=== PATIENT | male | born 1995 | race Caucasian/White ===

== ENCOUNTER 2023-08-29 20:58 | Emergency (ER) | payer OTHER, SELFPAY ==
[2023-08-29] VITALS (12 sets, daily range): BP systolic 86–122; BP diastolic 54–91; PULSE 108–138; RESP 10–24; TEMP 36.4; O2SAT 94–100; BMI 27.3
--- NOTE | 2023-08-29 21:16 | XRR_ITS ---
PROCEDURE INFORMATION: Exam: XR Abdomen Exam date and time: 08/29/2023 9:26 PM Age: 27 years old Clinical indication: Abdominal pain; Prior surgery; Surgery date: <1 month; Surgery type: Heart valve 3 weeks ago TECHNIQUE: Imaging protocol: Radiologic exam of the abdomen. Views: 2 Views. Upright and supine views. COMPARISON: CR XR chest 1V [id number] 09/20/2016 7:23 PM FINDINGS: Lungs: Bibasilar right greater than left atelectasis versus infiltrate. Pleural spaces: Small right pleural effusion. Gastrointestinal tract: Normal. No bowel dilation. Intraperitoneal space: Normal. No free air. Bones/joints: Sternotomy wires. XR/XR acute abdomen series [id number] IMPRESSION: 1. Small right pleural effusion. 2. Bibasilar right greater than left atelectasis versus infiltrate. 3. Sternotomy wires.
--- NOTE | 2023-08-29 21:16 | CTR_ITS ---
PROCEDURE INFORMATION: Exam: CT Head Without Contrast Exam date and time: 08/29/2023 9:23 PM Age: 27 years old Clinical indication: Injury or trauma; Fall; Blunt trauma (contusions or hematomas); Patient HX: PT started having abd pain after taking miralax today, also started having diarrhea. States the pain has moved up into his chest this evening. Vomiting started in triage. PT had aortic valve replacement 3 weeks at [facility] in [place]. states that after surgery he came out with a bump on his head and some numbness on right side of scalp behind his ear. ; Additional info: Fall, head injury TECHNIQUE: Imaging protocol: Computed tomography of the head without contrast. Radiation optimization: All CT scans at this facility use at least one of these dose optimization techniques: automated exposure control; mA and/or kV adjustment per patient size (includes targeted exams where dose is matched to clinical indication); or iterative reconstruction. COMPARISON: No relevant prior studies available. RADIATION DOSE METRICS: Total DLP (mGy-cm): 1091 FINDINGS: Brain: Normal. No hemorrhage. Unremarkable white matter. No mass effect. Cerebral ventricles: No ventriculomegaly. Paranasal sinuses: Visualized sinuses are unremarkable. No fluid levels. Mastoid air cells: Visualized mastoid air cells are well aerated. Bones: Unremarkable. No acute fracture. Soft tissues: Unremarkable. CT/CT head wo con* [id number] IMPRESSION: No acute intracranial abnormality.
--- NOTE | 2023-08-29 21:17 | ECG_ITS ---
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 Measurements Intervals [place] Rate: 126 P: 52 MN: 123 QRS: 75 QRSD: 98 T: -90 QT: 335 QTc: 486 Interpretive Statements SINUS TACHYCARDIA MODERATE T-WAVE ABNORMALITY, CONSIDER LATERAL ISCHEMIA [-0.1+ mV T-WAVE IN I/aVL/V5/V6] MODERATE T-WAVE ABNORMALITY, CONSIDER INFERIOR ISCHEMIA [-0.1+ mV T-WAVE IN II/aVF] No previous ECG available for comparison Electronically Signed On 08-30-2023 7:25:48 CDT by Matthew Jo M.D. [id number] f
--- NOTE | 2023-08-29 21:17 | ECG_ITS ---
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 Measurements Intervals [place] Rate: 126 P: 52 DE: 123 QRS: 75 QRSD: 98 T: -90 QT: 335 QTc: 486 Interpretive Statements SINUS TACHYCARDIA MODERATE T-WAVE ABNORMALITY, CONSIDER LATERAL ISCHEMIA [-0.1+ mV T-WAVE IN I/aVL/V5/V6] MODERATE T-WAVE ABNORMALITY, CONSIDER INFERIOR ISCHEMIA [-0.1+ mV T-WAVE IN II/aVF] No previous ECG available for comparison Electronically Signed On 08-30-2023 7:25:41 CDT by Matthew Jo M.D. [id number] f
--- NOTE | 2023-08-29 21:21 | ED_ITS ---
HPI - Abdominal Pain 2 General: Chief Complaint: Abdominal Pain Stated Complaint: Heart Surgury\Pain Time Seen by Provider: 08/29/23 21:12 History of Present Illness: 27-year-old man who presents the emergen cy room with multiple complaints. The primary issue was abdominal pain. But also is having some confusion/memory loss. He had a fairly complicated surgery about 3 weeks ago at [facility] in [place]. He was having a aortic valve repair for congenital disorder. Apparently when a central line was being put in an artery was nicked and he bled out and ended up having CPR for 15 minutes until the surgeon can open his chest and repair the damaged artery. He then had the valve replaced. notes that he had had a lump on the back of his head that was unexplained. She is afraid he had hit his head. He had not really had any memory issues until today. He also has had diarrhea and some nausea and appears somewhat confused on presentation to the emergency room. He was having some epigastric and mid abdominal pain. He is tachycardic and slightly hypotensive on presentation. Review of Systems 2 Narrative: Constitutional symptoms: Negative except as documented in HPI. Skin symptoms: Negative except as documented in HPI. Eye symptoms: Negative except as documented in HPI. ENMT symptoms: Negative except as documented in HPI. Respiratory symptoms: Negative except as documented in HPI. Cardiovascular symptoms: Negative except as documented in HPI. Gastrointestinal symptoms: Negative except as documented in HPI. Genitourinary symptoms: Negative except as documented in HPI. Musculoskeletal symptoms: Negative except as documented in HPI. Neurologic symptoms: Negative except as documented in HPI. Psychiatric symptoms: Negative except as documented in HPI. Endocrine symptoms: Negative except as documented in HPI. Physical Exam 2 Narrative: EXAM NARRATIVE: General: Somnolent but arousable, patient appears slightly diaphoretic. Ill- appearing Skin: Warm, dry. Head: Normocephalic, atraumatic. Neck: Supple, trachea midline. Eye: Extraocular movements are intact. Ears, nose, mouth and throat: mucosa moist. Cardiovascular: Regular, tachycardic Respiratory: Lungs are clear to auscultation, respirations are non-labored, breath sounds are equal, Symmetrical chest wall expansion. Gastrointestinal: Soft, Nontender, Non distended, Normal bowel sounds. Musculoskeletal: Normal ROM, no deformity. Neurological: Alert and oriented, No focal neurological deficit observed. Patient does seem slightly confused. Psychiatric: Cooperative Course 2 Vital Signs: Vital signs: Vital Signs Temperature 97.6 F 08/29/23 21:05 Pulse Rate 114 H 08/30/23 00:15 Respiratory Rate 18 08/30/23 00:15 Blood Pressure 101/64 08/30/23 00:15 Pulse Oximetry 96 08/30/23 00:15 Oxygen Delivery Me thod Room Air 08/30/23 00:15 MDM - Abdominal Pain Medical Decision Making Medical decision making: Differential diagnosis including but not limited to and based on the above HPI, review of systems and physical exam: I have immediate concern for sepsis. Difficult to identify source. UA was ordered. Lactate. Blood cultures. Basic lab work. Chest x-ray. Concern for pneumonia. Urinary tract infection. Bacteremia. Also would have concern for renal failure. Cardiogenic shock would also be in my differential Orders placed to evaluate differential diagnosis based on the above differential, HPI and physical exam Acute abdominal series: Chest x-ray: New sternotomy wires. New right-sided effusion. No obvious focal infiltrates. No cardiomegaly. No pneumothorax. This was reviewed and interpreted by myself the ER physician. Abdomen x-ray: Nonspecific bowel gas pattern. No evidence of free air or obstruction. This was reviewed and interpreted by myself the emergency room physician. EKG: Time 2116 rate 126. Sinus tachycardia, nonspecific ST wave abnormalities, no ectopy, normal NV & QRS intervals, This was reviewed and interpreted by myself the ER physician at 2119 Sepsis decision making: -IV fluids, 2 L were ordered basically on presentation whenever vitals were presented to me is hypotensive and tachycardic. And after my physical exam. -10:15 PM: Broad-spectrum antibiotics, linezolid and meropenem were ordered when white count came back as 21.15. Repeat EKG: Time 2249 rate 109. Sinus tachycardia, no ectopy, normal NV & QRS intervals, This was reviewed and interpreted by myself the ER physician at 2252. Rate has decreased by 20 bpm. Still with some diffuse ST changes that are fairly nonspecific. Lab Review: Laboratory results were reviewed and interpreted by myself the emergency room physician. Patient has significant leukocytosis with a white count of 21,000 and a left shift at 92%. Hemoglobin is 15. BUN and creatinine are 18 and 1.1 which seems elevated for patient of this age so likely has some hypovolemia. Urinalysis does show some white cells and 2+ bacteria. Lactic acid was 2.7 initially and is increased to 3.2 despite fluids and improvement in his vitals. I reviewed the patient's medical record. CTA of the chest abdomen pelvis: Chest shows small apical right pneumothorax. Right-sided pneumonia with a pleural effusion which could possibly be an empyema. Abdomen shows some changes of the kidneys that might indicate pyelonephritis but no other acute changes. This was reviewed and interpreted by myself the emergency room physician. I also reviewed the radiology reports. Reexamination: Patient remains slightly confused but answers questions appropriately. A little somnolent at times and little bit forgetful. No focal motor deficits. No increased work of breathing and has had no oxygen requirements. He remains slightly tachycardic. Still appears somewhat ill. Assessment and plan: Sepsis Pneumonia Tachycardia Hypotension Urinary tract infection Pneumothorax ?Patient received early broad-spectrum IV antibiotics and 2 L initially and then 1/3 L at around 2 hours. ? Vital signs are improving slightly with heart rate down into the 100s. Blood pressures between 99-110 systolic. Which is improved. However it is worrisome that his lactate has gone up slightly from 2.7-3.2. ? I spoke with the hospitalist here and I am in agreements that he has a possible empyema and with his postsurgical issues I think he needs to go back to [facility]. ? I spoke with Dr. Saab who is excepting the patient to the emergency room. Hospitalist did request that he go to the ER. -3 L normal saline bolus. Fluid volumes based on ideal body weight. -Broad-spectrum antibiotics were administered. -Sepsis quality measures. -Lactic acid with a reflex was ordered. -Blood cultures were ordered. - Discussed findings and plan with patient and family. Answered any questions. - All laboratory values were reviewed and interpreted personally by myself, the ER physician - All imaging was reviewed and interpreted personally by myself, the ER physician. - Evaluation and treatment of this problem were appropriate in the emergency setting -I spent a total of >35 minutes of critical care time managing the patient, independent of any other practitioner. -The time involved in the performance of separately reportable procedures was not counted towards critical care time. Lab Data 08/29/23 21:44 08/29/23 21:44 Labs/Radiology: Radiology Impressions Chest/Abdomen X-ray 08/29/23 21:16 IMPRESSION: 1. Small right pleural effusion. 2. Bibasilar right greater than left atelectasis versus infiltrate. 3. Sternotomy wires. Head CT 08/29/23 21:16 IMPRESSION: No acute intracranial abnormality. Chest/Abdomen/Pelvis CT 08/29/23 23:15 IMPRESSION: 1. Small right apical pneumothorax with 14 mm separation between the lung and pleura. 2. Right lower lobe pneumonia. 3. Moderate to large right pleural effusion. 4. CABG changes. IMPRESSION: 1. Mildly prominent fluid in the small bowel without dilation may reflect an enteritis. 2. Right kidney upper pole focal area of heterogeneity along with left kidney interpolar region small focal area of heterogeneity, please correlate for possible pyelonephritis. ADDENDUM: 08/30/23 0031 THIS REPORT CONTAINS FINDINGS THAT MAY BE CRITICAL TO PATIENT CARE. The findings were verbally communicated via telephone conference with JERMAIN OWENS at 12:28 AM CDT on 08/30/2023. The findings were acknowledged and understood. Patient also has a prosthetic aortic valve. Sternotomy hardware may be related to the aortic valve replacement rather than a CABG, please correlate clinically. Laboratory Results WBC 21.15 10^3/uL (3.29-11.43) H 08/29/23 21:44 RBC 5.32 10^6/uL (3.85-5.65) 08/29/23 21:44 Hgb 15.20 g/dL (11.27-16.99) 08/29/23 21:44 Hct 44.8 % (37-53) 08/29/23 21:44 MCV 84.2 fl (82-101) 08/29/23 21:44 MCH 28.6 pg (27-33) 08/29/23 21:44 MCHC 33.9 g/dL (30-55) 08/29/23 21:44 RDW 14.1 % (12.1-15.1) 08/29/23 21:44 Plt Count 470 10^3/cmm (157-399) H 08/29/23 21:44 MPV 8.5 fL (7.4-10.4) 08/29/23 21:44 Neut % (Auto) 91.1 % 08/29/23 21:44 Lymph % (Auto) 4.0 % 08/29/23 21:44 [place] % (Auto) 2.3 % 08/29/23 21:44 Eos % (Auto) 0.3 % 08/29/23 21:44 Baso % (Auto) 0.6 % 08/29/23 21:44 Neut # (Auto) 19.26 10^3/uL (1.8-7.7) H 08/29/23 21:44 Lymph # (Auto) 0.9 10^3/uL (0.8-4.8) 08/29/23 21:44 [place] # (Auto) 0.5 10^3/uL (0.2-0.9) 08/29/23 21:44 Eos # (Auto) 0.1 10^3/uL (0.0-0.8) 08/29/23 21:44 Baso # (Auto) 0.1 10^3/uL (0.0-0.1) 08/29/23 21:44 Nucleated RBC % (auto) 0 % 08/29/23 21:44 Nucleated RBCs # 0.0 /100WBC 08/29/23 21:44 Specimen Type Arterial 08/29/23 23:05 Sample Site Radial, left 08/29/23 23:05 ABG pH 7.41 (7.35-7.45) 08/29/23 23:05 ABG pCO2 33.3 mmHg (35-45) L 08/29/23 23:05 ABG pO2 76.2 mmHg (80.0-100.0) L 08/29/23 23:05 ABG HCO3 21.3 mmol/L (22-26) L 08/29/23 23:05 ABG O2 Saturation 96.4 08/29/23 23:05 ABG Base Excess -2.6 mmol/L (-2.0-2.0) L 08/29/23 23:05 Paco Test Pos 08/29/23 23:05 A-a O2 Gradient 3.9 mmHg (5-10) L 08/29/23 23:05 Hematocrit 37.9 % (42-52) L 08/29/23 23:05 Hgb O2 Saturation 94.3 % (95-100) L 08/29/23 23:05 Carboxyhemoglobin 1.5 %THgb (0.4-20.1) 08/29/23 23:05 Methemoglobin 0.7 % (0.4-1.5) 08/29/23 23:05 Total Hemoglobin 12.4 g/dL (14-18) L 08/29/23 23:05 Sodium 141.0 mmol/L (131-143) 08/29/23 23:05 Potassium 3.6 mmol/L (3.5-5.0) 08/29/23 23:05 Glucose 146.0 mg/dL (70-115) H 08/29/23 23:05 Ionized Calcium 1.0 mmol/L (1.1-1.4) L 08/29/23 23:05 O2 Delivery Device Room air 08/29/23 23:05 Chili Maker ID [email or web address] 08/29/23 23:05 Sodium 138 mmol/L (136-145) 08/29/23 21:44 Potassium 4.3 mmol/L (3.5-5.1) 08/29/23 21:44 Chloride 101 mmol/L (98-107) 08/29/23 21:44 Carbon Dioxide 21 mmol/L (22-29) L 08/29/23 21:44 Anion Gap 20.3 (5-19) H 08/29/23 21:44 BUN 18 mg/dL (6-20) 08/29/23 21:44 Creatinine 1.1 mg/dL (0.7-1.2) 08/29/23 21:44 GFR Calculation 79.1 mL/min (90-130) L 08/29/23 21:44 Glucose 107 mg/dL (65-115) 08/29/23 21:44 Calculated Osmolality 288 mOsm/kg (285-295) 08/29/23 21:44 Lactic Acid 2.7 mmol/L (0.5-2.2) H 08/29/23 21:44 Lactic Acid (Sepsis) 3.2 mmol/L (0.5-2.2) H 08/29/23 23:45 Calcium 9.3 mg/dL (8.5-10.5) 08/29/23 21:44 Total Bilirubin 0.2 mg/dL (0.15-1.2) 08/29/23 21:44 AST 36 U/L (0-40) 08/29/23 21:44 ALT 45 U/L (0-41) H 08/29/23 21:44 Alkaline Phosphatase 47 U/L (40-130) 08/29/23 21:44 Troponin T Baseline 44 ng/L (0-15) H 08/29/23 21:44 Troponin T 120 Minute 71.00 ng/L (0-15) H 08/29/23 23:45 Delta Troponin T 27.00 ABS# (0-10) H* 08/29/23 23:45 C-Reactive Protein 4.9 mg/L (0.0-4.9) 08/29/23 21:44 Total Protein 7.7 g/dL (6.6-8.7) 08/29/23 21:44 Albumin 4.3 g/dL (3.5-5.2) 08/29/23 21:44 Globulin 3.4 g/dL (1.3-4.6) 08/29/23 21:44 Lipase 64 U/L (13-60) H 08/29/23 21:44 Urine Color Yellow (Yellow) 08/29/23 22:47 Urine Appearance Cloudy (CLEAR) A 08/29/23 22:47 Urine pH 5 (5-7) 08/29/23 22:47 Ur Specific [place] 1.020 (1.005-1.030) 08/29/23 22:47 Urine Protein 2+ (Negative) H 08/29/23 22:47 Urine Glucose (UA) Norm (Normal) 08/29/23 22:47 Urine Ketones Negative (Negative) 08/29/23 22:47 Urine Blood Neg (Negative) 08/29/23 22:47 Urine Nitrate Negative (Negative) 08/29/23 22:47 Urine Bilirubin Neg (Negative) 08/29/23 22:47 Urine Urobilinogen Neg mg/dL (Negative) 08/29/23 22:47 Ur Leukocyte Esterase Trace (Negative) H 08/29/23 22:47 Urine RBC 0-4 /hpf (0-2) H 08/29/23 22:47 Urine WBC 5-10 /hpf (0-5) H 08/29/23 22:47 Ur Squamous Epith Cells None /hpf (0-5) 08/29/23 22:47 Amorphous Sediment 2+ /hpf 08/29/23 22:47 Urine Bacteria 2+ /hpf (NONE) H 08/29/23 22:47 Coarse Granular Casts 0-4 /lpf H 08/29/23 22:47 Urine Mucus 3+ /hpf 08/29/23 22:47 All radiology interpretation(s) finalized by discharge Discharge Plan Discharge Patient Disposition: Xfer Short-Term Hosp Clinical Impression: Healthcare associated bacterial pneumonia, Tachycardia, Acute metabolic encephalopathy Sepsis Qualifiers: Sepsis type: sepsis due to unspecified organism Sepsis acute organ dysfunction status: with acute organ dysfunction Severe sepsis acute organ dysfunction type: encephalopathy Severe sepsis shock status: with septic shock Qualified Code(s): A41.9 - Sepsis, unspecified organism Hypotension Qualifiers: Hypotension type: unspecified hypotension type Qualified Code(s): I95.9 - Hypotension, unspecified Urinary tract infection Qualifiers: Urinary tract infection type: acute cystitis Hematuria presence: without hematuria Qualified Code(s): N30.00 - Acute cystitis without hematuria Pneumothorax Qualifiers: Pneumothorax type: postprocedural Qualified Code(s): J95.811 - Postprocedural pneumothorax Condition: Stable Referrals: Katlin Skelton DO [Primary Care Provider] - Coding Level of Care Code ED Medical Technologist Microbiology for Jose Lugo
[2023-08-29] MEDS: sodium chloride 0.9% 1,000 ML 999 ML IV ×2 (21:48→21:55)
[2023-08-29 22:02] LABS: Basophils # 0.1 10^3/uL (0.0-0.1); Basophils % 0.6 %; Eosinophils # 0.1 10^3/uL (0.0-0.8); Eosinophils % 0.3 %; Hematocrit 44.8 % (37-53); Lymphocytes # 0.9 10^3/uL (0.8-4.8); Mean Corpuscular HGB Conc 33.9 g/dL (30-55); Mean Corpuscular Hemoglobin 28.6 pg (27-33); Mean Corpuscular Volume 84.2 fl (82-101); Mean Platelet Volume 8.5 fL (7.4-10.4); Monocytes # 0.5 10^3/uL (0.2-0.9); Monocytes % 2.3 %; Neutrophils # 19.26 10^3/uL (1.8-7.7); Neutrophils % 91.1 %; Nucleated Red Blood Cells % 0 %; Platelet Count 470 10^3/cmm (157-399); Red Blood Count 5.32 10^6/uL (3.85-5.65); Red Cell Distribution Width 14.1 % (12.1-15.1); White Blood Count 21.15 10^3/uL (3.29-11.43)
[2023-08-29 22:18] LABS: Troponin(5th) Baseline 44 ng/L (0-15)
[2023-08-29 22:21] LABS: Lactic Sepsis W/Reflex 2.7 mmol/L (0.5-2.2)
[2023-08-29 22:24] LABS: Alanine Aminotransferase 45 U/L (0-41); Albumin Level 4.3 g/dL (3.5-5.2); Alkaline Phosphatase 47 U/L (40-130); Anion Gap 20.3 (5-19); Aspartate Amino Transferase 36 U/L (0-40); Blood Urea Nitrogen 18 mg/dL (6-20); C Reactive Protein 4.9 mg/L (0.0-4.9); Calcium 9.3 mg/dL (8.5-10.5); Carbon Dioxide 21 mmol/L (22-29); Chloride 101 mmol/L (98-107); Globulin 3.4 g/dL (1.3-4.6); Glomerular Filtration Rate 79.1 mL/min (90-130); Glucose 107 mg/dL (65-115); Lipase 64 U/L (13-60); Osmolality Calculated 288 mOsm/kg (285-295); Potassium 4.3 mmol/L (3.5-5.1); Sodium 138 mmol/L (136-145); Total Bilirubin 0.2 mg/dL (0.15-1.2); Total Protein 7.7 g/dL (6.6-8.7)
[2023-08-29] MEDS: linezolid premix 600 MG/300 ML PREMIX 300 MG IV (22:38)
[2023-08-29] MEDS: meropenem 500 MG in sodium chloride 0.9% (plus) 50 ML 100 MG IV (22:38)
--- NOTE | 2023-08-29 22:50 | ECG_ITS ---
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 Measurements Intervals [place] Rate: 109 P: 46 ME: 128 QRS: 64 QRSD: 93 T: 58 QT: 333 QTc: 450 Interpretive Statements SINUS TACHYCARDIA POSSIBLE LEFT ATRIAL ENLARGEMENT [-0.1mV P-WAVE IN V1/V2] MODERATE T-WAVE ABNORMALITY, CONSIDER LATERAL ISCHEMIA [-0.1+ mV T-WAVE IN I/aVL/V5/V6] Compared to ECG 08/29/2023 21:17:26 No significant changes Electronically Signed On 08-30-2023 7:29:36 CDT by Matthew Jo M.D. [id number]
[2023-08-29 23:10] LABS: Bilirubin Urine Neg (Negative); Blood Urine Neg (Negative); Glucose Urine UA Norm (Normal); Ketones Urine Negative (Negative); Leukocyte Esterase Urine Trace (Negative); Nitrate Urine Negative (Negative); Protein Urine 2+ (Negative); RBC Urine 0-4 /hpf (0-2); Urine Appearance Cloudy (CLEAR); Urine Color Yellow (Yellow); Urobilinogen Urine Neg (Negative); pH Urine 5 (5-7)
[2023-08-29 23:11] LABS: Amorphous Sediment Urine 2+ /hpf; Bacteria Urine 2+ /hpf; Mucus Urine 3+ /hpf
[2023-08-29 23:12] LABS: Add Urine Culture? No; Coarse Granular Casts Urine 0-4 /lpf
[2023-08-29 23:14] LABS: ABG PCO2 33.3 mmHg (35-45); ABG PH Result 7.41 (7.35-7.45); Alveolar-Arterial Oxygen Gradi 3.9 mmHg (5-10); Arterial Blood Gas Hematocrit 37.9 % (42-52); Base Excess ABG -2.6 mmol/L (-2.0-2.0); Blood Gas Allen Test Pos; Blood Gas Sample Site Radial, left; Blood Gas Sample Type Arterial; Carboxyhemoglobin 1.5 %THgb (0.4-20.1); HCO3 ABG 21.3 mmol/L (22-26); HGB O2 Sat 94.3 % (95-100); Methemoglobin 0.7 % (0.4-1.5); Oxygen Device ROOM AIR; Oxygen Saturation ABG 96.4; PO2 ABG 76.2 mmHg (80.0-100.0); Potassium Level - ABG 3.6 mmol/L (3.5-5.0); Total Hemoglobin 12.4 g/dL (14-18)
--- NOTE | 2023-08-29 23:15 | CTR_ITS ---
PROCEDURE INFORMATION: Exam: CT Chest With Contrast; Diagnostic Exam date and time: 08/29/2023 11:58 PM Age: 27 years old Clinical indication: Nausea and vomiting and other: Sepsis; Prior surgery; Surgery date: <1 month; Surgery type: Heart valve TECHNIQUE: Imaging protocol: Diagnostic computed tomography of the chest with contrast. Radiation optimization: All CT scans at this facility use at least one of these dose optimization techniques: automated exposure control; mA and/or kV adjustment per patient size (includes targeted exams where dose is matched to clinical indication); or iterative reconstruction. Contrast material: OMNI 350; Contrast volume: 100 ml; Contrast route: INTRAVENOUS (IV); COMPARISON: CR XR chest 1V [id number] 09/20/2016 7:23 PM RADIATION DOSE METRICS: Total DLP (mGy-cm): 421 FINDINGS: Lungs: Right lower lobe pneumonia. Pleural spaces: Small right apical pneumothorax with 14 mm separation between the lung and pleura. Moderate to large right pleural effusion. Heart: Unremarkable. No cardiomegaly. No pericardial effusion. Coronary arteries: CABG changes. Lymph nodes: Unremarkable. No enlarged lymph nodes. Vasculature: Unremarkable. No aortic aneurysm. Bones/joints: Unremarkable. No acute fracture. Soft tissues: Unremarkable. PROCEDURE INFORMATION: Exam: CT Abdomen And Pelvis With Contrast Exam date and time: 08/29/2023 11:58 PM Age: 27 years old Clinical indication: Nausea and vomiting and other: Sepsis; Prior surgery; Surgery date: <1 month; Surgery type: Heart valve TECHNIQUE: Imaging protocol: Computed tomography of the abdomen and pelvis with contrast. Radiation optimization: All CT scans at this facility use at least one of these dose optimization techniques: automated exposure control; mA and/or kV adjustment per patient size (includes targeted exams where dose is matched to clinical indication); or iterative reconstruction. Contrast material: OMNI 350; Contrast volume: 100 ml; Contrast route: INTRAVENOUS (IV); COMPARISON: CR (ABDOMEN, ) 08/29/2023 9:26 PM RADIATION DOSE METRICS: Total DLP (mGy-cm): 670 FINDINGS: Liver: Normal. No mass. Gallbladder and bile ducts: Normal. No calcified stones. No ductal dilation. Pancreas: Normal. No ductal dilation. Spleen: Normal. No splenomegaly. Adrenal glands: Normal. No mass. Kidneys and ureters: Right kidney upper pole focal area of heterogeneity along with left kidney interpolar region small focal area of heterogeneity, please correlate for possible pyelonephritis. Stomach and bowel: Mildly prominent fluid in the small bowel without dilation may reflect an enteritis. Appendix: No evidence of appendicitis. Intraperitoneal space: Unremarkable. No free air. No significant fluid collection. Vasculature: Unremarkable. No abdominal aortic aneurysm. Lymph nodes: Unremarkable. No enlarged lymph nodes. Urinary bladder: Unremarkable as visualized. Reproductive: Unremarkable as visualized. Bones/joints: Unremarkable. No acute fracture. Soft tissues: Unremarkable. CT/CT chest abdpel w/*[id number] IMPRESSION: 1. Small right apical pneumothorax with 14 mm separation between the lung and pleura. 2. Right lower lobe pneumonia. 3. Moderate to large right pleural effusion. 4. CABG changes. IMPRESSION: 1. Mildly prominent fluid in the small bowel without dilation may reflect an enteritis. 2. Right kidney upper pole focal area of heterogeneity along with left kidney interpolar region small focal area of heterogeneity, please correlate for possible pyelonephritis.
[2023-08-29 23:47] LABS: Reflex Lactate Order REFLEX LACTIC ORDERD
--- NOTE | 2023-08-29 23:50 | PC.RESP ---
RT phone did not receive notification of ABG when ordered. Physician notified of this.
[2023-08-30] VITALS (11 sets, daily range): BP systolic 92–108; BP diastolic 61–76; PULSE 99–115; RESP 6–25; O2SAT 95–97
[2023-08-30] MEDS: iohexol 350 mg/mL 500 mL Btl (per mL) IV (00:02)
[2023-08-30 00:10] LABS: Lactic Acid level (Lactate) 3.2 mmol/L (0.5-2.2)
[2023-08-30] MEDS: sodium chloride 0.9% 1,000 ML 999 ML IV (01:17)
[2023-08-30 01:43] LABS: Adenovirus Not Detected (NOT DETECT); Chlamydia Pneumoniae Not Detected (NOT DETECT); Coronavirus 229E,HKU1,NL63,OC4 Not Detected (NOT DETECT); Human Metapneumovirus Not Detected (NOT DETECT); Human Rhinovirus/Enterovirus Detected (NOT DETECT); Influenza A Not Detected (NOT DETECT); Influenza A H1 Not Detected (NOT DETECT); Influenza A H1-2009 Not Detected (NOT DETECT); Influenza A H3 Not Detected (NOT DETECT); Influenza B Not Detected (NOT DETECT); Mycoplasma Pneumoniae Not Detected (NOT DETECT); Parainfluenza Virus Type 1 Not Detected (NOT DETECT); Parainfluenza Virus Type 2 Not Detected (NOT DETECT); Parainfluenza Virus Type 3 Not Detected (NOT DETECT); Parainfluenza Virus Type 4 Not Detected (NOT DETECT); Respiratory Syncytial Virus A Not Detected (NOT DETECT); Respiratory Syncytial Virus B Not Detected (NOT DETECT); SARS-COV-2 Not Detected (NOT DETECT)
== END 2023-08-30 02:53 | disposition short-term general hospital (02) ==
PROVIDERS: Emergency Provider Emergency Medicine; PCP Family Medicine
DX: A41.9 Sepsis, unspecified organism (principal); R65.21 Severe sepsis with septic shock; I95.9 Hypotension, unspecified; N30.00 Acute cystitis without hematuria; J95.811 Postprocedural pneumothorax; R00.0 Tachycardia, unspecified; G93.41 Metabolic encephalopathy; J15.8 Pneumonia due to other specified bacteria; B34.8 Other viral infections of unspecified site
CPT/HCPCS: 36415; 36600; 70450; 71260; 74022; 74177; 80051; 80053; 81001; 82330; 82805; 83605; 83690; 84484; 85025; 86140; 87040; 87486; 87581; 87633; 93005; 96365; 96366; 96367; 99285; J2020; J2185; J7030; Q9967